=== PATIENT | male | born 1985 | race Caucasian/White ===

== ENCOUNTER 2024-07-15 18:50 | Emergency (ER) | payer BC ==
[2024-07-15 19:00] VITALS: BP 121/80; PULSE 87; RESP 20; TEMP 97.6; BMI 26.6
[2024-07-15] MEDS ORDERED: IBUPROFEN 400 MG TABLET (FP) PO ONE (20:30)
[2024-07-15] MEDS ORDERED: DIPHTH,PERTUSS(ACELL),TET 0.5 ML DISP.SYRIN IM ONE (20:31)
[2024-07-15] MEDS ORDERED: AMOX TR/POT CLAV 875MG/125MG TABLETS (FP) ONE (20:31)
[2024-07-15] MEDS: AMOX TR/POT CLAV 875MG/125MG TABLETS (FP) PO ONE (20:32)
[2024-07-15] MEDS: IBUPROFEN 400 MG TABLET (FP) PO ONE (20:32)
[2024-07-15] MEDS: DIPHTH,PERTUSS(ACELL),TET 0.5 ML DISP.SYRIN IM ONE (20:33)
== END 2024-07-15 21:10 | disposition home or self-care (01) ==
LOC: JERFT 18:50
PROC: 3E0234Z Introduction of Serum, Toxoid and Vaccine into Muscle, Percutaneous Approach (ICD-10-PCS; principal; 2024-07-15)
DX: S71.152A Open bite, left thigh, initial encounter (principal); W54.0XXA Bitten by dog, initial encounter; Z23 Encounter for immunization
CPT/HCPCS: 90715; 99283-25